=== PATIENT | female | born 1995 | race Caucasian/White ===

== ENCOUNTER 2017-05-11 13:31 | Emergency (ER) | payer BC, OTHER ==
[2017-05-11 14:10] VITALS: TEMP 97.1; O2SAT 99
[2017-05-11 14:54] VITALS: BP 138/101; PULSE 116; RESP 16
== END 2017-05-11 14:50 | disposition home or self-care (01) ==
LOC: ED 13:31
DX: S50.312A Abrasion of left elbow, initial encounter (principal)
CPT/HCPCS: 73070; 99282

== ENCOUNTER 2019-02-22 15:57 | Emergency (ER) | payer BC, OTHER ==
[2019-02-22 16:40] VITALS: BP 120/81; PULSE 98; RESP 16; TEMP 97.4; O2SAT 98
== END 2019-02-22 18:10 | disposition home or self-care (01) ==
LOC: ED 15:57
DX: S92.502A Displaced unspecified fracture of left lesser toe(s), initial encounter for closed fracture (principal)
CPT/HCPCS: 73630; 99282; 99283